=== PATIENT | male | born 1955 | race Caucasian/White ===

== ENCOUNTER 2024-02-05 06:45 | Outpatient (CLI) | payer MEDICARE, SELFPAY ==
--- NOTE | ~2024-02-05 | MR_ITS ---
MR cervical spine wo con Ordering provider: Ashanti Fowler, RESIDENT CARE TECHNICIAN-C History: 68 years Male with . CERVICAL RADICULOPATHY . Comparison: None. Technique: MRI cervical spine without contrast. FINDINGS: CERVICAL SPINAL CORD/CRANIAL CERVICAL JUNCTION: Normal in signal and caliber. CERVICAL VERTEBRAL BODIES: Normal height and alignment. Normal marrow signal. DISK SPACES: Narrowing of the disc spaces C4-C5. C2-C3: No stenosis. Narrowing of the left foramen by osteophyte formation. C3-C4: No stenosis. Diffuse disc bulge. Bilateral narrowing of the foramina with nerve root compressi on. Left facet joint disease. C4-C5: Moderate spinal canal stenosis secondary to broad based disc protrusion. Bilateral narrowing of the foramina with nerve root compression. Nerve compression in the lateral recesses also noted. C5-C6: No stenosis. Mild diffuse disc bulge. C6-C7: No stenosis. Mild diffuse disc bulge. C7-T1: No stenosis. VISUALIZED PARASPINOUS SOFT TISSUES: Normal. IMPRESSION: 1. Multilevel degenerative disc disease with variable degrees of spinal canal stenosis, intervertebr al foraminal narrowing and root compression. Reviewed, dictated and finalized at location A. STICAL ENGINEER IMPRESSION: 1. Multilevel degenerative disc disease with variable degrees of spinal canal stenosis, intervertebral foraminal narrowing and root compression.
== END 2024-02-05 06:46 | disposition home or self-care (01) ==
PROVIDERS: PCP Internal Medicine; Visit Provider Nurse Practitioner Family
DX: M50.321 Other cervical disc degeneration at C4-C5 level (principal); M48.02 Spinal stenosis, cervical region
CPT/HCPCS: 72141

== ENCOUNTER 2024-10-16 06:39 | Outpatient (CLI) | payer MEDICARE, SELFPAY ==
--- NOTE | ~2024-10-16 | XR_ITS ---
EXAMINATION: XR chest 2V 10/16/2024 06:50 INDICATION: Persistent cough PROCEDURE: 2 view chest COMPARISON: No prior studies for comparison. FINDINGS: The lungs are clear. The cardiomediastinal silhouette is within normal limits. There are no pleural effusions. There is no pneumothorax suspected. IMPRESSION: 1: NO ACUTE CARDIOPULMONARY DISEASE. Reviewed, dictated and finalized at location []
--- OUTSIDE RECORDS SUMMARY | 2024-10-16 06:42 | XMS_ITS | Clinical Summary ---
Author Organization [facility] Address [address] [place] [address] Phone Care Team Providers Care Employment Case Manager Name Role Phone Eduard Albarran MD Primary Care Provider [phone] Allergies Active Allergy Reactions Criticality Noted Date Comments Penicillin G Unknown High 03/02/2021 TOLD ALLERGIC REACTION A BABY Medications lisinopril-hydr oCHLOROthiazide (PRINZIDE, ZESTORETIC) 20-25 MG TabletIndicatio ns:TAKES IN A.M. Take 1 Tablet by mouth daily. Indications: TAKES IN A.M. Active lisinopril (PRINIVIL, ZESTRIL) 20 MG Tablet Take 20 mg by mouth nightly. Active Dulaglutide (Trulicity) 3 MG/0.5ML Solution Pen-injectorInd ications:USES ON WEDNESDAYS by Subcutaneous route once a week. Indications: USES ON WEDNESDAYS Active metFORMIN (GLUCOPHAGE) 500 MG Tablet Take 500 mg by mouth 2 times daily (with meals). Active insulin lispro (HumaLOG) 100 UNIT/ML Solution 30 Units by Subcutaneous route nightly. Use as directed Active levothyroxine (SYNTHROID) 200 MCG Tablet Take 200 mcg by mouth daily. Active Insulin Degludec (TRESIBA SC)Indications: TAKES AFTER BREAKFAST 40 Units by Subcutaneous route daily. 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 Alcohol Use Standard Drinks/Week Comments Not Currently 0 (1 standard drink = 0.6 oz pur e alcohol) Sex and Gender Information Value Date Recorded Sex Assigned at Not on file Legal Sex Male 3:22 PM SOLAR INSTALLATION MANAGER Gender Identity Not on file Sexual Orientation Not on file Last Filed Vital Signs Vital Sign Reading Time Taken Comments Blood Pressure 121/63 03/08/2021 9:22 AM SOLAR INSTALLATION MANAGER Pulse 84 03/08/2021 9:22 AM SOLAR INSTALLATION MANAGER Temperature 36.4 C (97.5 F) 03/08/2021 9:22 AM SOLAR INSTALLATION MANAGER Respiratory Rate 16 03/08/2021 9:22 AM SOLAR INSTALLATION MANAGER Oxygen Saturation 97% 03/08/2021 9:22 AM SOLAR INSTALLATION MANAGER Inhaled Oxygen Concentration - - Weight 115.7 kg (255 lb) 03/02/2021 11:00 AM SOLAR INSTALLATION MANAGER Height 185.4 cm (6' 1) 03/02/2021 11:00 AM SOLAR INSTALLATION MANAGER Body Mass Index 33.64 03/02/2021 11:00 AM SOLAR INSTALLATION MANAGER Plan of Treatment Not on file Medical Devices Implanted Type Area Horticultural Worker Device Identifier Shelf Expiration Date Model / Serial / Lot Tecnis Simplicity Delivery System Implanted:Qty: 1 on 03/08/2021 by Eduard Darling MD at [facility] Left: Eye 12/01/2023 [id number] / [id number] / [id number] Insurance MEDICARE C [facility] on file Care Teams Employment Case Manager Relationship Specialty Start Date End Date Eduard Albarran MD PCP - General Internal Medicine 03/08/21
--- OUTSIDE RECORDS SUMMARY | 2024-10-16 06:42 | XMS_ITS | Clinical Summary ---
Author Organization [facility] Address [address] [place] [address] Care Team Providers Care Exchange Engineer Name Role Phone Eduard Albarran MD Primary Care Provider [phone] Allergies Active Allergy Reactions Criticality Noted Date Comments Penicillin G Rash High 03/02/2021 TOLD ALLERGIC REACTION A BABY Penicillins Rash,Unknown Medium 11/01/2016 Medications metFORMIN (GLUCOPHAGE) 500 mg tablet Take 1 tablet (500 mg total) by mouth 2 (two) times a day with meals Active insulin glargine (LANTUS) 100 unit/mL injection Inject under the skin nightly. Active insulin lispro (HumaLOG) 100 unit/mL injection Inject under the skin 3 (three) times a day before meals. Active lisinopril-hydr oCHLOROthiazide (PRINZIDE,ZESTO RETIC) 10-12.5 mg per tabletIndicatio ns:hypertension Take 1 tablet by mouth daily Active levothyroxine (SYNTHROID, LEVOTHROID) 200 mcg tablet Take 1 tablet (200 mcg total) by mouth survey questionnaire designer before breakfast Active ofloxacin (FLOXIN) 0.3 % otic solution Administer 5 drops into each ear daily 5 mL 2 Active insulin aspart prot/insuln asp (NOVOLOG MIX 70-30FLEXPEN U-100 SUBQ) 40 units twice a day 3 Active gabapentin (NEURONTIN) 100 mg capsule Take 1 capsule (100 mg total) by mouth nightly as needed Active lisinopriL (PRINIVIL,ZESTR [place]) 20 mg tablet Take 1 tablet (20 mg total) by mouth daily 5 Active tiZANidine (ZANAFLEX) 4 mg tablet Take 1 tablet (4 mg total) by mouth daily as needed Active Active Problems Problem Noted Date Diagnosed Date Disequilibrium 11/11/2019 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 NAME OF OPERATION: (Jessica 12/08/2010) 1. Major glossectomy and left selective neck dissection. 2. Partial left oropharyngeal wall pharyngectomy. 3. Digastric muscle flap reconstruction of left pharyngotomy. 4. Alloderm implant to the left neck. 5. Exploration of external carotid without lysis, and ligation of left lingual and left facial arteries. 6. Closure thoracic duct leak, left transcervical approach 6. Microlaryngoscopy and biopsy. 7. Tracheotomy. 8. Radiation treatment complete 03/30/11 ([place]) Abnormal findings on diagnostic imaging of lung 03/24/2015 Type 2 diabetes mellitus 08/03/2013 Overview (06/22/2016): DMII WO CMP UNCNTRLD Carpal tunnel syndrome 01/05/2011 Cervicalgia 01/05/2011 Medical History Medical History Date Comments Diabetes mellitus (HCC) Diabetes Family History Medical History Relation Name Comments Diabetes Father Family history of diabetes mellitus - (Added by TW Conv) Diabetes Mother Family history of diabetes mellitus - (Added by TW Conv) Diabetes type II Other 1 Family hist ory of Diabetes -Type II; Other Other 1 No family histo ry of Aneurysm; Other Other 2 No family histo ry of Coronary artery disease; Other Other 3 No family histo ry of Hypertension; Other Other 4 No family histo ry of Renal disease; Relation Name Status Comments Father Mother Other 1 Other 2 Other 3 Other 4 Social History Tobacco Use Types Packs/Day Years Used Date Smoking Tobacco: Never Tobacco Cessation:Counseling Given: Not Answered Alcohol Use Standard Drinks/Week Comments Yes 0 (1 standard drink = 0.6 oz pur e alcohol) Sex and Gender Information Value Date Recorded Sex Assigned at Not on file Legal Sex Male 12:32 AM YARN WASHER Gender Identity Not on file Sexual Orientation Not on file Obstetrics History Last Filed Vital Signs Vital Sign Reading Time Taken Comments Blood Pressure 164/88 12/02/2014 1:10 PM CDT Pulse - - Temperature - - Respiratory Rate - - Oxygen Saturation - - Inhaled Oxygen Concentration - - Weight 117.8 kg (259 lb 12.8 oz) 05/30/2024 8:25 AM CDT Height 182.9 cm (6') 05/31/2023 8:31 AM CDT Body Mass Index 35.24 05/31/2023 8:31 AM CDT Plan of Treatment Health Maintenance Due Date Last Done Comments Albumin Creatinine Ratio, Urine 1953 Colon Cancer Screening-Colonoscopy 1953 Depression Screening 1953 Fall Risk Assessment 1953 Hemoglobin A1C 1953 Hepatitis C Screening 1953 eGFR 1953 Dilated Eye Exam 1953 Foot Exam 1953 Lipid Panel 1953 Hepatitis B Screening 09/08/1971 Zoster Vaccine (1 of 2) 09/08/2003 Well Visit 65+ 2018 Influenza Vaccine (#1) 2024 , 01/08/2020, 12/15/2018, Additional history exists DTaP/Tdap/Td Vaccine (2 - Td or Tdap) 01/31/2030 02/01/2020 Pneumococcal vaccine 65+ Completed 06/30/2021, 11/19 Insurance [facility] [place] [address] [facility] [place] [place] [address] Care Teams Exchange Engineer Relationship Specialty Start Date End Date Eduard Albarran MD PCP - General Internal Medicine 05/31/23
--- OUTSIDE RECORDS SUMMARY | 2024-10-16 06:42 | XMS_ITS | Continuity of Care Document ---
Author Organization [facility] Address [address] [facility] [address] [facility] [address] [place] [address] Phone Care Team Providers Care Director Of Pupil Personnel Program Name Role Phone Leonidas Arevalohil Unavailable Unavailable Procedures Procedure Date Office/outpatient Visit, [facility] Advance Directives Directive Yes / No Effective Date File Name No Information Encounters Encounter Description Practice Location Reason(s) For Visit Diagnoses Date Provider Providers Copied on Encounter Office/outpat ient Visit, [facility], [address], [place], [place], [id number], [place] tel:[phone] SEC [facility] No Information May-3 0-201 0 Mickey Juan. [address] [facility] [address], [place], [address], [place]. tel:[phone] Referring Provider: Sean Henriquez MD, [address] [place], [place], [facility]. tel:[phone] Family History Family Member Type Diagnosis Age At Onset No Information Payers Payer name Insurance type Covered republican ID Authoriza tion(s) No Information Social History [...]
--- OUTSIDE RECORDS SUMMARY | 2024-10-16 06:42 | XMS_ITS | Referral Summary ---
Author Organization [facility] Address [address] [place] [address] Care Team Providers Care Painter Spray Name Role Phone Eduard Albarran MD Primary Care Provider [phone] Allergies Active Allergy Reactions Criticality Noted Date [...] 1 tablet (200 mcg total) by mouth drive thru order taker before breakfast Active ofloxacin (FLOXIN) 0.3 % [...] UNCNTRLD Carpal tunnel syndrome 01/05/2011 Cervicalgia 01/05/2011 Social History Tobacco Use Types Packs/Day Years Used Date Smoking Tobacco: Never Tobacco Cessation:Counseling Given: Not Answered Alcohol Use Standard Drinks/Week Comments Yes 0 (1 standard drink = 0.6 oz pur e alcohol) Sex and Gender Information Value Date Recorded Sex Assigned at Not on file Legal Sex 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
--- OUTSIDE RECORDS SUMMARY | 2024-10-16 06:42 | XMS_ITS ---
Author Organization [facility] Address [address] [place] [address] Care Team Providers Care National Service Officer Name Role Phone Eduard Albarran MD Primary Care Provider [phone] Active Problems Problem Noted Date Diagnosed Date [...] UNCNTRLD Carpal tunnel syndrome 01/05/2011 Cervicalgia 01/05/2011 Current Treatment and Therapy Plans No current plan information found. Past Treatment and Therapy Plans No past plan information found. Lifetime Dose Tracking * Chemical Lifetime Dose Automatic Entry Manual Entr y DLP 605 mGycm 605 mGycm 0 mGycm
== END 2024-10-16 06:40 | disposition home or self-care (01) ==
PROVIDERS: PCP Internal Medicine; Visit Provider Internal Medicine
DX: R05.3 Chronic cough (principal)
CPT/HCPCS: 71046

== ENCOUNTER 2025-01-13 08:13 | Outpatient (CLI) | payer MEDICARE, SELFPAY ==
--- OUTSIDE RECORDS SUMMARY | 2009-06-16 10:15 | XMS_ITS | Continuity of Care Document ---
Author Organization [facility] Address [address] [facility] [address] [place] [address] Phone Care Team Providers Care Web Retailer Name Role Phone Leonidas Arevalohil Unavailable Unavailable Procedures Procedure Date Office/outpatient Visit, [facility] Advance Directives Directive Yes / No Effective Date File Name No Information Encounters Encounter Description Practice Location Reason(s) For Visit Diagnoses Date Provider Providers Copied on Encounter Office/outpat ient Visit, [facility], [address], [place], [place], [id number], [place] tel:[phone] SEC [facility] No Information May-3 0-201 0 Mickey Juan. [address] [facility] [address], [place], [address], [place]. tel:[phone] Referring Provider: Sean Henriquez MD, [address] [place], [place], [facility]. tel:[phone] Family History Family Member Type Diagnosis Age At Onset No Information Payers Payer name Insurance type Covered libertarian ID Authoriza tion(s) No Information Social History Type Description Quantity Date Captured Comments Sex Male Smoking Status No Information Chief Complaint And Reason For Visit No Information Reason For Referral Reason For Referral No Information History Of Present Illness Encounter Date Complaint History Of Prese nt Illness No Information Functional Status Date Functional Assessmen t No Information Instructions Date Instruction Additional Infor mation No Information Assessments Type Assessment Date No Information Patient Care Teams Name Effective Dates (start - stop) Status Members No Information
--- NOTE | ~2025-01-13 | XR_ITS ---
EXAMINATION: XR chest 2V, 01/13/2025 8:25 CDT HISTORY: Cough COMPARISON: No comparisons available. Technique: 2 views obtained. Findings: The lungs are clear, no effusion. No pneumothorax. Heart is normal size. Mediastinal and hilar contours are within normal limits. Bony thorax no acute abnormality. Impression: No acute cardiopulmonary abnormality. Reviewed, dictated and finalized at location P. Impression: No acute cardiopulmonary abnormality.
--- OUTSIDE RECORDS SUMMARY | 2025-01-13 08:24 | XMS_ITS ---
Author Organization [facility] Address [address] [place] [address] Care Team Providers Care Inside Phone Sales Name Role Phone Eduard Albarran MD Primary Care Provider [phone] Active Problems Problem Noted Date Diagnosed Date [...]
--- OUTSIDE RECORDS SUMMARY | 2025-01-13 08:24 | XMS_ITS | Clinical Summary ---
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 Alcohol Use Standard Drinks/Week Comments Not Currently 0 (1 standard drink = 0.6 oz pur e alcohol) Sex and Gender Information Value Date Recorded Sex Assigned at Not on file Legal Sex Male 3:22 PM DIRECTOR RECREATION Gender Identity Not on file Sexual Orientation Not on file Last Filed Vital Signs Vital Sign Reading Time Taken Comments Blood Pressure 121/63 03/08/2021 9:22 AM DIRECTOR RECREATION Pulse 84 03/08/2021 9:22 AM DIRECTOR RECREATION Temperature 36.4 C (97.5 F) 03/08/2021 9:22 AM DIRECTOR RECREATION Respiratory Rate 16 03/08/2021 9:22 AM DIRECTOR RECREATION Oxygen Saturation 97% 03/08/2021 9:22 AM DIRECTOR RECREATION Inhaled Oxygen Concentration - - Weight 115.7 kg (255 lb) 03/02/2021 11:00 AM DIRECTOR RECREATION Height 185.4 cm (6' 1) 03/02/2021 11:00 AM DIRECTOR RECREATION Body Mass Index 33.64 03/02/2021 11:00 AM DIRECTOR RECREATION Plan of Treatment Not on file Medical Devices Implanted Type Area Clerical Administrative Assistant Device Identifier Shelf Expiration Date Model / Serial / Lot Tecnis Simplicity Delivery System Implanted:Qty: 1 on 03/08/2021 by Eduard Darling MD at [facility] Left: Eye 12/01/2023 [id number] / [id number] / [id number] Insurance MEDICARE C [facility] on file Care Teams Bus Attendant Relationship Specialty Start Date End Date Eduard Albarran MD PCP - General Internal Medicine 03/08/21
--- OUTSIDE RECORDS SUMMARY | 2025-01-13 08:24 | XMS_ITS | Clinical Summary ---
Author Organization [facility] Address [address] [place] [address] Care Team Providers Care Distilling Department Supervisor Name Role Phone Eduard Albarran MD Primary Care Provider [phone] Allergies Active Allergy Reactions Criticality Noted Date [...] 1 tablet (200 mcg total) by mouth talent partner before breakfast Active ofloxacin (FLOXIN) 0.3 % [...] History Medical History Date Comments Diabetes mellitus Diabetes Family History Medical History Relation Name [...] on file Legal Sex Male 12:32 AM TUBE WASHER Gender Identity Not on file Sexual [...] Pneumococcal vaccine 65+ Completed 06/30/2021, 11/19 Insurance [facility] MEDICARE ADVANTAGE [facility] MDCR HMO REF Care Teams Distilling Department Supervisor Relationship Specialty Start Date End Date Eduard Albarran MD PCP - General Internal Medicine 05/31/23
== END 2025-01-13 08:14 | disposition home or self-care (01) ==
PROVIDERS: PCP Internal Medicine; Visit Provider Internal Medicine
DX: R05.9 Cough, unspecified (principal)
CPT/HCPCS: 71046